=== PATIENT | female | born 1935 | race Caucasian/White ===

== ENCOUNTER 2020-08-23 07:05 | Outpatient (CLI) | payer MEDICARE, SELFPAY ==
[2020-08-23 22:56] LABS: SARS-CoV-2 RNA PCR Negative
== END 2020-08-23 07:06 | disposition home or self-care (01) ==
LOC: CHSLAB 07:09
PROVIDERS: PCP Internal Medicine; Visit Provider Internal Medicine Gastroenterology
DX: Z01.812 Encounter for preprocedural laboratory examination (principal); Z20.828 Contact with and (suspected) exposure to other viral communicable diseases
CPT/HCPCS: 87635; C9803; U0003

== ENCOUNTER 2020-08-25 02:07 | Day surgery (SDC) | payer MEDICARE, SELFPAY ==
[2020-08-17 15:48] VITALS: BMI 25.4
[2020-08-25] MEDS: LACTATED RINGERS 1,000 ML 150 ML IV CONT (09:54)
[2020-08-25 09:58] VITALS: BP 181/71; PULSE 112; RESP 18; TEMP 36.8; O2SAT 97; BMI 24.6
--- NOTE | 2020-08-25 10:05 | WPDHPUPDATE1 ---
History and Physical Update Update Date/Time: 08/25/20 10:05 History and Physical has been reviewed, including an updated exam of the patient. There are NO changes in the patient's condition. Risks, benefits, and alternatives have been discussed and questions answered. Patient agrees to proceed with procedure.
--- NOTE | 2020-08-25 10:10 | WPDANESEPPF ---
Anes - Initial Pre Proc Eval Procedure: Operation Date: 08/25/20 10:30 Proposed Procedures p Colonoscopy - Calvin Williamson MD Date/Time: 08/25/20 10:10 Surgeon: Calvin Williamson MD Pre Op Diagnosis: Diarrhea Patient Data Age: 85 Gender: F Height: 5 ft 3 in Weight: 63.1 kg Last Vital Signs Temp 98.2 F 08/25/20 09:58 Pulse 112 H 08/25/20 09:58 Resp 18 08/25/20 09:58 BP 181/71 H 08/25/20 09:58 Pulse Ox 97 08/25/20 09:58 Allergies Allergy/AdvReac Type Severity Reaction Status Date / Time adhesive tape Allergy Unknown SKIN Verified 08/25/20 09:57 IRRITATION doxycycline Allergy Unknown Unknown Verified 08/25/20 09:57 Iodine and Iodide Containing Allergy Unknown Unknown Verified 08/25/20 09:57 Produc lansoprazole Allergy Unknown Unknown Verified 08/25/20 09:57 sulfamethizole Allergy Unknown Unknown Verified 08/25/20 09:57 trimethoprim Allergy Unknown Unknown Verified 08/25/20 09:57 Contrast Media Allergy Severe RASH Uncoded 08/25/20 09:57 Home Medications Medication Instructions Recorded Confirmed Type hydrochlorothiazide 12.5 mg tablet 12.5 mg PO DAILY 04/27/20 08/17/20 History levothyroxine 112 mcg capsule 112 mcg PO DAILY 04/27/20 08/25/20 History sodium,potassium,mag sulfates 17.5 480 ml PO .COMPLEX #354 ml 08/06/20 08/17/20 Rx gram-3.13 gram-1.6 gram oral soln duloxetine 20 mg PO DAILY 08/17/20 08/25/20 History irbesartan 300 mg PO DAILY 08/17/20 08/17/20 History Patient hx anesthesia problems: none Family hx anesthesia problems: none PMFSH Past Medical History Medical History (Updated 08/06/20 @ 10:17 by Calvin Williamson MD) Anxiety Dyslipidemia Hypertension Hypothyroid Family History Family History Father Family history of coronary artery disease Social History Social History Smoking status: Never smoker Living arrangements: alone Gender identity (if verbalized by the patient): Female Spiritual care concerns: No Anes - Eval Final PreProcedure Day of Procedure 08/25/20 10:10 Patient weight: normal Heart: regular rate and rhythm Lungs: clear to auscultation Airway: Mallampati scale class II Neurological: alert and oriented Last oral intake: >/= 8 hours ASA classification: III Emergent: no Anesthetic plan: proceed Anesthesia type and monitoring: general GIVS and standard monitoring Informed Consent: The patient's anesthetic plan and its attendant risks and benefits were discussed with the patient/family/POA. Questions were solicited and answers provided to the satisfaction of the patient/family/POA.
[2020-08-25 10:29] VITALS: BP 118/58; PULSE 80; RESP 24; O2SAT 98
[2020-08-25 10:39] VITALS: BP 155/64; PULSE 69; RESP 22; O2SAT 100
[2020-08-25 10:49] VITALS: BP 155/64; PULSE 68; RESP 22; O2SAT 99
== END 2020-08-25 11:08 | disposition home or self-care (01) ==
PROVIDERS: PCP Internal Medicine; Visit Provider Internal Medicine Gastroenterology
PROC: 0DJD8ZZ Inspection of Lower Intestinal Tract, Via Natural or Artificial Opening Endoscopic (ICD-10-PCS; CPT 45378; principal; 2020-08-25 10:30)
DX: R19.7 Diarrhea, unspecified (principal); K63.89 Other specified diseases of intestine; K64.8 Other hemorrhoids; I10 Essential (primary) hypertension; E78.5 Hyperlipidemia, unspecified; E03.9 Hypothyroidism, unspecified; F41.9 Anxiety disorder, unspecified
CPT/HCPCS: 45380; 88305; 88342; J2704; J7120

== ENCOUNTER 2021-03-05 08:16 | Outpatient (CLI) | payer MEDICARE, SELFPAY | END 2021-03-05 08:17 | disposition home or self-care (01) | LOC: CHSCOVIDVC 08:17 | PROVIDERS: PCP Internal Medicine | DX: Z23 Encounter for immunization (principal) | CPT/HCPCS: 0011A; 91301 ==

== ENCOUNTER 2021-04-02 08:20 | Outpatient (CLI) | payer MEDICARE, SELFPAY | END 2021-04-02 08:21 | disposition home or self-care (01) | LOC: CHSCOVIDVC 08:20 | PROVIDERS: PCP Internal Medicine | DX: Z23 Encounter for immunization (principal) | CPT/HCPCS: 0012A; 91301 ==

== ENCOUNTER 2022-06-26 09:35 | Emergency (ER) | payer MEDICARE, SELFPAY ==
--- NOTE | ~2022-06-26 | CT_ITS ---
EXAMINATION: CT brain wo con DATE: 06/26/2022 10:20 INDICATION: Speech deficit. Headache. TECHNIQUE: Computed tomography (CT) of the head was performed without intravenous contrast. The mA wa s adjusted according to patient size. Iterative reconstruction technique was employed. The dose-lengt h product was 605.33 mGy-cm. COMPARISON: Head CT 12/19/2017 FINDINGS: There are scattered areas of low attenuation in the cerebral white matter. There is no intr acranial hemorrhage, acute infarction, or abnormal intracranial mass lesion. The ventricles are mynor l in size. The paranasal sinuses are clear. The orbits are normal. There is a small left mastoid effu jolly. IMPRESSION: 1. Mild nonspecific cerebral white matter disease, which likely represents chronic small vessel ische willie disease. Reviewed, dictated and finalized at location A. IMPRESSION: 1. Mild nonspecific cerebral white matter disease, which likely represents media monitor edilberto small vessel ischemic disease.
[2022-06-26 09:35] VITALS: BP 172/75; PULSE 97; RESP 16; TEMP 36.5; O2SAT 100
[2022-06-26 09:40] VITALS: BP 172/75; PULSE 91; RESP 18; TEMP 36.5; O2SAT 98
--- NOTE | 2022-06-26 09:53 | ED.NEUROSD ---
HPI - Neuro Symptoms/Deficit General Chief Complaint: Altered Mental Status Stated Complaint: hard time communicating with pharmacy slight heada Time Seen by Provider: 06/26/22 09:53 Source: patient, family and RN notes reviewed Mode of arrival: ambulatory Limitations: no limitations History of Present Illness HPI Narrative: patient had an episode where she was on the phone with the pharmacy and suddenly could not find the words to speak she had hang up the phone. Then she was able to call her daughter and after about 5-10 minutes the symptoms completely resolved. She denies any one-sided body weakness. She complained of a slight headache which has also resolved. Onset (ago): minute(s) (20) Timing confirmed by: family member Location: speech History of same: No Severity: moderate Quality: intermittent Relieving factors: time Exacerbating factors: none Context: sudden onset On Anticoagulants: No Associated symptoms: denies other symptoms Treatments Prior to Arrival: none Related Data Home Medications Medication Instructions Recorded Confirmed hydrochlorothiazide 12.5 mg tablet 12.5 mg PO DAILY 04/27/20 06/26/22 levothyroxine 112 mcg capsule 112 mcg PO DAILY 04/27/20 06/26/22 duloxetine 20 mg capsule,delayed 20 mg PO DAILY 08/17/20 06/26/22 release irbesartan 300 mg tablet 300 mg PO DAILY 08/17/20 06/26/22 fyhtnphdwxob-ajmmbykn-wnfimb tablet 1 tablet PO DAILY 08/10/21 06/26/22 Allergies Allergy/AdvReac Type Severity Reaction Status Date / Time adhesive tape Allergy Unknown SKIN Verified 06/26/22 09:49 IRRITATION doxycycline Allergy Unknown Unknown Verified 06/26/22 09:49 Iodine and Iodide Containing Allergy Unknown Unknown Verified 06/26/22 09:49 Produc lansoprazole Allergy Unknown Unknown Verified 06/26/22 09:49 sulfamethizole Allergy Unknown Unknown Verified 06/26/22 09:49 trimethoprim Allergy Unknown Unknown Verified 06/26/22 09:49 Contrast Media Allergy Severe RASH Uncoded 04/25/22 13:29 Review of Systems Review of Systems: All systems reviewed & are unremarkable except as noted in HPI and below PMFSH Past Medical History Medical History Anxiety Basal cell carcinoma Chronic diarrhea Colitis determined by colorectal biopsy Diarrhea of infectious origin Dyslipidemia H/O vaginal delivery x 2 Hypertension Hypothyroid Surgical History Surgical History H/O total hysterectomy History of appendectomy History of tonsillectomy and adenoidectomy History of total right knee replacement Family History Family History Father Family history of coronary artery disease Social History Social History Smoking status: Never smoker Alcohol intake: never Substance use: never Gender identity (if verbalized by the patient): Female Spiritual care concerns: No Exam Const: General: healthy appearing, no acute distress and alert Nutritional Appearance: well nourished Orientation/consciousness: patient oriented x3 Limitations: no limitations HENMT: Head: normal to inspection Ears: external ears normal General nose exam: Normal external nose present Face and sinus: normal facial exam Mouth: Yes moist mucous membranes Eyes: Conjunctivae: conjunctivae normal Pupils: Equal, round and reactive pupils present EOM: EOMs intact bilaterally Neck: Neck: normal visual inspection Resp: Effort & Inspection: normal respiratory effort Auscultation: clear to auscultation bilaterally Cardio: Rate: regular rate Rhythm: regular rhythm Heart sounds: Murmur heart sound present systolic mid, harsh, III/ and at the base GI: GI Palp: Yes Soft to palpation and No Tenderness to palpation present (GI) Auscultation: normal bowel sounds Back/Spine/Pelvis: Cervical Spine: cervical ROM normal Thoracic
--- NOTE | 2022-06-26 09:58 | ECG_ITS ---
Measurements Intervals [place] Rate: 75 P: 51 W[place]: 155 QRS: 53 QRSD: 98 T: 45 QT: 366 QTc: 409 Interpretive Statements SINUS RHYTHM Electronically Signed On 06-27-2022 8:28:34 CDT by Jayme Pop M.D.
[2022-06-26 10:18] LABS: Basophils Absolute Auto 0.11 K/mm3 (0.00-0.10); Basophils Percent Auto 1.4 % (0.0-1.0); Eosinophils Absolute Auto 0.32 K/mm3 (0.02-0.50); Eosinophils Percent Auto 4.1 % (1.0-6.0); Hematocrit 36.6 % (35.0-42.0); Hemoglobin 12.3 g/dL (11.7-13.8); Immature Granulocyte Absolute 0.02 K/mm3 (0.00-0.00); Immature Granulocyte Percent A 0.3 % (0.0-0.0); Lymphocytes Absolute Auto 1.63 K/mm3 (1.10-4.50); Lymphocytes Percent Auto 20.7 % (18.0-42.0); Mean Corpuscular HGB Conc 33.6 g/dL (32.0-36.0); Mean Corpuscular Hemoglobin 31.5 pg (27.0-31.0); Mean Corpuscular Volume 93.8 fL (78.0-102.0); Mean Platelet Volume 8.7 fl (9.2-11.8); Monocytes Absolute Auto 0.66 K/mm3 (0.10-0.90); Monocytes Percent Auto 8.4 % (2.0-11.0); Neutrophils Absolute Auto 5.1 K/mm3 (1.7-7.2); Neutrophils Percent Auto 65.1 % (50.0-70.0); Platelet Count Result 382 K/mm3 (150-420); Red Cell Distribution Width 12.4 % (11.6-14.4); White Blood Count 7.9 K/mm3 (4.8-10.8)
[2022-06-26 10:20] VITALS: PULSE 70
[2022-06-26 10:25] VITALS: BP 136/62; PULSE 72; RESP 16; O2SAT 99
[2022-06-26] MEDS: ASPIRIN 81 MG CHEWABLE TABLET 324 MG PO (10:25)
[2022-06-26 10:37] LABS: Prothrombin Time 10.6 Seconds (9.50-12.10)
[2022-06-26 10:44] LABS: Albumin Level 3.4 g/dL (3.4-5.0); Alkaline Phosphatase 113 U/L (46-116); Anion Gap 8 mmol/L (8-16); Aspartate Amino Transferase 18 U/L (15-37); Bilirubin,Total 0.4 mg/dL (0.00-1.00); Blood Urea Nitrogen 23 mg/dL (7-18); Calcium 8.7 mg/dL (8.5-10.1); Carbon Dioxide 26 mmol/L (21-32); Chloride 101 mmol/L (98-108); Estimated CRCL calculation 26 ml/min; Estimated Glomerular Filt Rate 43; Glucose 129 mg/dL (70-99); Osmolality Calculated 285 mOsm/kg (285-295); Potassium 3.9 mmol/L (3.5-5.1); Sodium 135 mmol/L (136-145); Total Protein 7.2 g/dL (6.4-8.2); Troponin I 10.9 ng/L (0.00-60.4)
[2022-06-26 10:55] LABS: Alanine Aminotransferase 11 U/L (14-59)
[2022-06-26 11:20] VITALS: BP 124/58; PULSE 66; RESP 14; TEMP 36.4; O2SAT 96
--- NOTE | 2022-06-26 11:42 | PC.NURSE ---
DR NGUYEN RETURNS CALL AND SPEAKS WITH DR MICHELLE AT THIS TIME.
[2022-06-26 11:58] VITALS: BP 132/68; PULSE 62; RESP 16; O2SAT 97
== END 2022-06-26 12:06 | disposition home or self-care (01) ==
PROVIDERS: Emergency Provider Emergency Medicine; PCP Internal Medicine
DX: Z86.73 Personal history of transient ischemic attack (TIA), and cerebral infarction without residual deficits (principal); E78.5 Hyperlipidemia, unspecified; I10 Essential (primary) hypertension; E03.9 Hypothyroidism, unspecified
CPT/HCPCS: 36415; 70450; 80053; 84484; 85025; 85610; 93005; 99284; A9270

== ENCOUNTER 2022-06-30 07:21 | Outpatient (CLI) | payer MEDICARE, SELFPAY ==
--- NOTE | ~2022-06-30 | CT_ITS ---
EXAMINATION: CT brain wo con DATE: 06/30/2022 08:07 INDICATION: Altered mental status. Speech deficit. Hypertension. TECHNIQUE: Computed tomography (CT) of the head was performed without intravenous contrast. The dose- length product was 605.33 mGy-cm. Automated exposure control and iterative reconstruction technique w ere employed. COMPARISON: CT dated 06/26/2022 FINDINGS: Mild generalized atrophy. There are scattered moderate periventricular and subcortical whit e matter changes, most likely related to small vessel ischemic disease (microangiopathy). No ventricu lomegaly or midline shift. Basilar cisterns are patent. No acute intracranial hemorrhage, infarction or mass. There is intracranial atherosclerosis. Paranasal sinuses and mastoids are pneumatized. No de pressed skull fractures. IMPRESSION: 1. No acute intracranial abnormality. 2: Chronic age-related findings. Reviewed, dictated and finalized at location A.
--- NOTE | ~2022-06-30 | US_ITS ---
EXAMINATION: US carotid duplex BI DATE: 06/30/2022 08:13 INDICATION: TIA. Recent episode of the fascia. Garbled speech. TECHNIQUE: Grayscale, color Doppler, and pulsed Doppler images of the cervical carotid arteries were obtained. The degree of vessel stenosis is placed in one of the following categories: normal, <50%, 5 0-69%, >=70% but less than near-occlusion, near-occlusion, or total occlusion. Note that percent sten osis relative to normal distal artery lumen diameter is indirectly measured from velocity measurement s as described by Noam, et al. Radiology 2003; 229:340-346. Notes: Normal: Peak systolic velocity <125 centimeters/sec and no plaque <50%. Peak systolic velocity <125 ( EDV <40; ICA/CCA PSV ratio <2.0; used these factors only a tandem lesions or low cardiac output or co ntralateral disease) 50-69 %: PSV 125-230 (EDV 40-100; ratio 2-4) >= 70% but less than near occlusion: PSV greater than 230 (EDV > 100; ratio> 4.0) Near Occlusion: PSV that is variable; markedly narrowed lumen Occlusion: Absent flow on color/spectral Doppler and no lumen on herbert scale. COMPARISON: None. FINDINGS: RIGHT: The right common carotid artery (CCA) peak systolic velocity (PSV) is 64 cm/s. The right internal car otid artery (ICA) PSV is 65 cm/s. The right ICA end-diastolic velocity (EDV) is 12 cm/s. The right IC A/CCA PSV ratio is 1.0. The external carotid artery (ECA) PSV is 49 cm/s. There is antegrade flow in the right vertebral artery. LEFT: The left CCA PSV is 65 cm/s. The left ICA PSV is 76 cm/s. The left ICA EDV is 19 cm/s. The left ICA/C CA PSV ratio is 1.2. The ECA PSV is 68 cm/s. There is antegrade flow in the left vertebral artery. IMPRESSION: 1. Less than 50% stenosis in the right internal carotid artery by sonographic criteria. 2. Less than 50% stenosis in the left internal carotid artery by sonographic criteria. Reviewed, dictated and finalized at location A. IMPRESSION: 1. Less than 50% stenosis in the right internal carotid artery by sonographic c halie. 2. Less than 50% stenosis in the left internal carotid artery by sonographic nilesh [facility] [place] [facility].
== END 2022-06-30 07:22 | disposition home or self-care (01) ==
LOC: CHSIMG 07:22
PROVIDERS: PCP Internal Medicine; Visit Provider Internal Medicine
DX: I65.29 Occlusion and stenosis of unspecified carotid artery (principal); R41.82 Altered mental status, unspecified; I10 Essential (primary) hypertension; R47.89 Other speech disturbances
CPT/HCPCS: 70450; 93880

== ENCOUNTER 2022-07-03 12:14 | Outpatient (CLI) | payer MEDICARE, SELFPAY ==
--- NOTE | 2022-07-03 13:30 | ECHO_ITS ---
Patient Info Name: Olivia Polo Age: 86 years : 1935 Gender: Female Ht: 63 in Wt: 145 lbs BSA: 1.72 m2 HR: 74 bpm BP: 157 / 61 mmHg Technical Quality: Good Exam Date: 07/03/2022 12:34 PM Exam Location: [facility] [place] Patient Status: Outpatient Admit Date: 07/03/2022 Staff Ordering Physician: Srikanth Orozco MD Aerospace Physiological Technician: Juan M Smith RDCS, RT Attending Provider: Srikanth Orozco MD Exam Type: CA echo doppler color flow Study Info Indications I10 - Essential (primary) hypertension Complete two-dimensional, color flow and Doppler transthoracic echocardiogram is performed. Strain analysis performed. Summary 1. Complete two-dimensional, color flow and Doppler transthoracic echocardiogram is performed. 2. Left ventricular chamber dimension is normal. 3. Left ventricular systolic function is hyperdynamic, estimated at >70%. 4. There is mildly increased left ventricular wall thickness. 5. The left ventricular diastolic function is grade I diastolic dysfunction. 6. E/e' 7 is not elevated. 7. Global longitudinal strain is abnormal at -15.7%. 8. No pulmonary hypertension, estimated pulmonary arterial systolic pressure is 30 mmHg. Left Ventricle E/e' 7 is not elevated. Global longitudinal strain is abnormal at -15.7%. Left ventricular chamber dimension is normal. Left ventricular systolic function is hyperdynamic, estimated at >70%. There is mildly increased left ventricular wall thickness. The left ventricular diastolic function is grade I diastolic dysfunction. Right Ventricle Right ventricular systolic function is normal and with normal TAPSE 2.3 cm. Right ventricular chamber dimension is normal. Left Atria Left atrial chamber dimension is normal. Right Atria Right atrial chamber dimension is normal. Aortic Valve The aortic valve is trileaflet. There is no aortic valve stenosis. There is no aortic valve regurgitation. Pulmonic Valve There is no pulmonic regurgitation. Mitral Valve There is no mitral valve stenosis. There is no mitral valve regurgitation. Tricuspid Valve There is no tricuspid valve regurgitation. No pulmonary hypertension, estimated pulmonary arterial systolic pressure is 30 mmHg. Pericardium/Pleural There is no pericardial effusion. Inferior Vena Cava Normal inferior vena cava with >50% collapse upon inspiration consistent with normal right atrial pressure, 5 mmHg. Aorta The aortic root size at the sinus of Valsalva is normal. Left Ventricular Outflow Tract Name Value Normal LVOT 2D LVOT Diameter 1.9 cm LVOT Doppler LVOT Peak Velocity 86 cm/s LVOT Peak Gradient 3 mmHg LVOT Mean Gradient 1 mmHg LVOT VTI 17 cm LVOT VTI/AV VTI Ratio 0.8 LVOT Stroke Volume 46 ml Mitral Valve Name Value Normal MV Dop
== END 2022-07-03 12:15 | disposition home or self-care (01) ==
LOC: CHSIMG 12:15
PROVIDERS: PCP Internal Medicine; Visit Provider Internal Medicine
DX: R41.82 Altered mental status, unspecified (principal); R47.9 Unspecified speech disturbances; I10 Essential (primary) hypertension
CPT/HCPCS: 93306

== ENCOUNTER 2022-10-03 12:38 | Outpatient (CLI) | payer MEDICARE, SELFPAY | END 2022-10-03 12:39 | disposition home or self-care (01) | PROVIDERS: PCP Internal Medicine; Visit Provider Specialist | DX: C44.622 Squamous cell carcinoma of skin of right upper limb, including shoulder (principal) | CPT/HCPCS: 88305 ==

== ENCOUNTER 2023-01-12 11:31 | Outpatient (CLI) | payer MEDICARE, SELFPAY ==
--- NOTE | ~2023-01-12 | XR_ITS ---
Clinical Indication: Chest pain PA and lateral views of the chest: Comparison: 07/21/2019 Findings: Calcified right midlung granuloma is unchanged. The lungs are otherwise clear, without evid ence of focal consolidation or pleural effusion. Cardiomediastinal silhouette is within normal limit s. Bones and soft tissues are unremarkable. Impression: No acute reality. Reviewed, dictated and finalized at location . E CLEANER Impression: No acute reality.
== END 2023-01-12 11:32 | disposition home or self-care (01) ==
LOC: CHSIMG 11:33
PROVIDERS: PCP Internal Medicine; Visit Provider Internal Medicine
DX: R07.9 Chest pain, unspecified (principal); R06.00 Dyspnea, unspecified; G93.32 Myalgic encephalomyelitis/chronic fatigue syndrome
CPT/HCPCS: 71046

== ENCOUNTER 2023-01-15 15:34 | Outpatient (CLI) | payer MEDICARE, SELFPAY ==
[2023-01-15 16:07] LABS: Estimated Glomerular Filt Rate 42
== END 2023-01-15 15:35 | disposition home or self-care (01) ==
LOC: CHSLAB 15:36
PROVIDERS: PCP Internal Medicine; Visit Provider Internal Medicine
DX: R06.00 Dyspnea, unspecified (principal)
CPT/HCPCS: 99199

== ENCOUNTER 2023-01-16 09:38 | Outpatient (CLI) | payer MEDICARE, SELFPAY ==
--- NOTE | ~2023-01-16 | NM_ITS ---
Nuclear Medicine Procedure: Perfusion/Ventilation Lung Scan History: Pulmonary embolus. Interpretation: Ventilation portion of the exam was not performed due to Covid 19 precautions. 5.2 mCi. of Technetium-labeled microspheres were injected intravenously and multiple images obtained in 8 projections revealed normal perfusion to the lungs without any segmental or subsegmental defects . Impression: Normal perfusion lung scan. This excludes clinically significant pulmonary emboli. ............................................................... The following are reference parameters for VQ scan interpretation: 1. Normal or Near-Normal Lung Scan: This excludes clinically significant pulmonary embolism. Angiography is not necessary. 2. High Probability for Pulmonary Embolism: There is over 90% probability for acute pulmonary embolism. Angiography is not necessary for confirmation. 3. A. Intermediate (low end): Whereas unlikely to be PE based on V/Q scan alone, there is a 10-25% probability for pulmonary embolism (PE) based upon the level of clinical suspicion. B. Intermediate (high end): Depending upon the level of clinical suspicion, there is a 30-60% probability for pulmonary embolism. Reviewed, dictated and finalized at location . Impression: Normal perfusion lung scan. This excludes clinically significant pu lmonary emboli. ............................................................... The following are reference parameters for VQ scan interpretation: 1. Normal or Near-Normal Lung Scan: This excludes clinically significant pulmonary embolism. Angiography is not necessary. 2. High Probability for Pulmonary Embolism: There is over 90% probability for acute pulmonary embolism. Angiography is not necessary for confirmation. 3. A. Intermediate (low end): Whereas unlikely to be PE based on V/Q scan alone, there is a 10-25% probability for pulmonary embolism (PE) based upon the level of clinical suspicion. B. Intermediate (high end): Depending upon the level of clinical suspicion, there is a 30-60% probability for pulmonary embolism.
--- NOTE | ~2023-01-16 | XR_ITS ---
Clinical Indication: Dyspnea PA view of the chest: Comparison: 01/12/2023 Findings: Stable calcified right lower lobe granuloma. The lungs are otherwise clear, without evidenc e of focal consolidation or pleural effusion. Cardiomediastinal silhouette is within normal limits. Bones and soft tissues are unremarkable. Impression: No acute abnormality. Reviewed, dictated and finalized at location . Impression: No acute abnormality.
== END 2023-01-16 09:39 | disposition home or self-care (01) ==
PROVIDERS: PCP Internal Medicine; Visit Provider Internal Medicine
DX: R06.00 Dyspnea, unspecified (principal)
CPT/HCPCS: 71045; 78580; A9540

== ENCOUNTER 2023-01-19 14:12 | Emergency (ER) | payer MEDICARE, SELFPAY ==
[2023-01-19] VITALS (25 sets, daily range): BP systolic 109–137; BP diastolic 43–71; PULSE 61–73; RESP 20; TEMP 36.9–37.1; O2SAT 90–100
--- NOTE | ~2023-01-19 | XR_ITS ---
XR chest 1V portable 01/19/2023 16:14 Indication: Covid infection. Cough and fever. Procedure: AP portable chest Comparison: 01/16/2023 Findings: There is subtle right basilar airspace disease. Heart size normal. No pleural effusion no a cute osseous abnormality. Impression: 1: Subtle right basilar airspace disease may represent atelectasis or pneumonia. Reviewed, dictated and finalized at location A. Impression: 1: Subtle right basilar airspace disease may represent atelectasis or pneumonia .
--- NOTE | 2023-01-19 15:44 | ECG_ITS ---
Measurements Intervals [place] Rate: 60 P: 78 IA: 166 QRS: 82 QRSD: 94 T: 79 QT: 426 QTc: 429 Interpretive Statements SINUS RHYTHM ATRIAL PREMATURE COMPLEXES BORDERLINE T WAVE ABNORMALITY- HIGH LATERAL LEADS BASELINE ARTIFACT- I, II, III, AVL, V5-V6 BORDERLINE ECG COMPARED TO ECG 06/26/2022 10:29:17 NO SIGNIFICANT CHANGES Electronically Signed On 01-19-2023 16:53:55 CDT by David Nam D.O.
--- NOTE | 2023-01-19 15:45 | ED.GENADULT ---
HPI - General Adult General Chief complaint: Upper Respiratory Infection Stated complaint: covid + / dehydration History of Present Illness HPI narrative: The patient is an 87-year-old woman with history of hypertension, anxiety, migraine headaches, hypothyroidism and hyperlipidemia. She has not contracted COVID-19 previously. She is vaccinated against COVID-19 2 of 2 doses +1 booster. She went to her primary care provider office today due to cough with productive of white phlegm, with fatigue and shortness of breath. She has felt weak and has been in bed for the last 3 days. She does not feel well. At the PCP office, she had a diarrheal episode while waiting in the chair. Saturations were 94% at the doctor's office with a pulse of 112 and a blood pressure 123/67. Testing for COVID-19 was positive, influenza was negative. She was referred here for possible confusion, possible dehydration. The patient feels better now. She denies any dyspnea. Denies any chest pain or abdominal pain. No nausea vomiting. She does feel weak. Does have an occasional cough productive of sputum. No fevers or chills. Related Data Home Medications Medication Instructions Recorded Confirmed hydrochlorothiazide 12.5 mg tablet 12.5 mg PO DAILY 04/27/20 01/19/23 levothyroxine 112 mcg capsule 112 mcg PO DAILY 04/27/20 01/19/23 duloxetine 20 mg capsule,delayed 20 mg PO DAILY 08/17/20 01/19/23 release irbesartan 300 mg tablet 300 mg PO DAILY 08/17/20 01/19/23 dwdrfuytfdpv-kwrlfzkz-ftwmgq tablet 1 tablet PO DAILY 08/10/21 01/19/23 Allergies Allergy/AdvReac Type Severity Reaction Status Date / Time adhesive tape Allergy Unknown SKIN Verified 06/26/22 09:49 IRRITATION doxycycline Allergy Unknown Unknown Verified 06/26/22 09:49 Iodine and Iodide Containing Allergy Unknown Unknown Verified 06/26/22 09:49 Produc lansoprazole Allergy Unknown Unknown Verified 06/26/22 09:49 sulfamethizole Allergy Unknown Unknown Verified 06/26/22 09:49 trimethoprim Allergy Unknown Unknown Verified 06/26/22 09:49 Contrast Media Allergy Severe RASH Uncoded 04/25/22 13:29 Review of Systems Review of Systems: All systems reviewed & are unremarkable except as noted in HPI and below Constitutional: Constitutional: Reports as per HPI, Reports no additional constitutional complaints, Denies chills, Denies excessive sweating, Reports fatigue, Denies fever(s), Denies headache(s) and Reports weakness Eyes: Eyes: Reports as per HPI, Reports no additional eye complaints, Denies change in vision and Denies photophobia ENT: Reports system reviewed and no additional complaints, except as documented, Reports as per HPI, Denies dysphagia, Denies vertigo, Denies dizziness, Denies headache(s), Denies lip swelling, Denies nasal congestion, Denies sore throat, Denies throat swelling and Denies tongue swelling Cardiovascular: Cardiovascular: Reports as per HPI, Reports no additional cardiovascular complaints, Denies chest pain, Denies syncope, Denies rapid heart rate and Denies dyspnea Respiratory: Respiratory: Reports as per HPI, Reports no additional respiratory complaints, Denies chest congestion, Reports cough, Denies dyspnea and Denies wheezing Gastrointestinal: Gastrointestinal: Reports as per HPI, Reports no additional gastrointestinal complaints, Denies abdominal pain, Denies constipation, Denies dysphagia, Reports diarrhea, Denies nausea and Denies vomiting Genitourinary: Genitourinary: Reports as per HPI, Denies hematuria, Denies urinary frequency, Denies dysuria, Denies urinary incontinence and Denies urinary urgency Musculoskeletal: Musculoskeletal: Reports no additional musculoskeletal complaints, Denies back pain, Reports myalgias, Denies arthralgias, Denies joint swelling and Denies numbness Integumentary/Breasts: Skin/Breast: Reports system reviewed and no additional complaints, except as docu, Denies pruritus, Denies erythema, Denies rash and Denies skin ulcer Neurolog
[2023-01-19] MEDS: SODIUM CHLORIDE 0.9% IV 1,000 ML 999 ML IV CONT (15:57)
[2023-01-19] MEDS: DEXAMETHASONE 2 MG TABLET 6 MG PO (15:58)
[2023-01-19 15:59] LABS: Basophils Absolute Auto 0.03 K/mm3 (0.00-0.10); Basophils Percent Auto 0.4 % (0.0-1.0); Hematocrit 34.2 % (35.0-42.0); Hemoglobin 11.8 g/dL (11.7-13.8); Immature Granulocyte Absolute 0.03 K/mm3 (0.00-0.00); Immature Granulocyte Percent A 0.4 % (0.0-0.0); Lymphocytes Absolute Auto 0.75 K/mm3 (1.10-4.50); Lymphocytes Percent Auto 9.1 % (18.0-42.0); Mean Corpuscular HGB Conc 34.5 g/dL (32.0-36.0); Mean Corpuscular Hemoglobin 31.6 pg (27.0-31.0); Mean Corpuscular Volume 91.7 fL (78.0-102.0); Monocytes Absolute Auto 0.89 K/mm3 (0.10-0.90); Monocytes Percent Auto 10.8 % (2.0-11.0); Neutrophils Absolute Auto 6.6 K/mm3 (1.7-7.2); Neutrophils Percent Auto 79.3 % (50.0-70.0); Platelet Count Result 309 K/mm3 (150-420); Red Blood Count 3.73 M/mm3 (4.20-5.40); Red Cell Distribution Width 12.4 % (11.6-14.4); White Blood Count 8.3 K/mm3 (4.8-10.8)
[2023-01-19 16:23] LABS: Alanine Aminotransferase 20 U/L (14-59); Albumin Level 3.4 g/dL (3.4-5.0); Alkaline Phosphatase 106 U/L (46-116); Anion Gap 10 mmol/L (8-16); Aspartate Amino Transferase 27 U/L (15-37); Bilirubin,Total 0.3 mg/dL (0.00-1.00); Blood Urea Nitrogen 27 mg/dL (7-18); Calcium 8.4 mg/dL (8.5-10.1); Carbon Dioxide 24 mmol/L (21-32); Chloride 97 mmol/L (98-108); Estimated CRCL calculation 21 ml/min; Estimated Glomerular Filt Rate 37; Glucose 124 mg/dL (70-99); NT Pro B Type Natriuretic Pept 228 pg/mL (0-450); Osmolality Calculated 278 mOsm/kg (285-295); Potassium 3.6 mmol/L (3.5-5.1); Sodium 131 mmol/L (136-145); Total Protein 6.7 g/dL (6.4-8.2); Troponin I 11.3 ng/L (0.00-60.4)
== END 2023-01-19 18:00 | disposition home or self-care (01) ==
PROVIDERS: Emergency Provider Emergency Medicine; PCP Internal Medicine
DX: U07.1 COVID-19 (principal); J20.8 Acute bronchitis due to other specified organisms; E86.0 Dehydration; R06.02 Shortness of breath; I10 Essential (primary) hypertension; E03.9 Hypothyroidism, unspecified; E78.5 Hyperlipidemia, unspecified; Z85.828 Personal history of other malignant neoplasm of skin
CPT/HCPCS: 36415; 71045; 80053; 83880; 84484; 85025; 93005; 96360; 99283; J1100; J7030; J8540

== ENCOUNTER 2023-05-17 12:54 | Outpatient (CLI) | payer MEDICARE, SELFPAY ==
--- NOTE | ~2023-05-17 | XR_ITS ---
EXAMINATION: XR chest 2V DATE: 05/17/2023 13:17 INDICATION: Shortness of breath TECHNIQUE: PA and lateral views of the chest are obtained. COMPARISON: 04/12/2023 FINDINGS: The lungs are free of acute opacities. No pleural effusion or pneumothorax. The cardiomedia stinal silhouette is normal. There is moderate thoracic spondylosis. A calcified nodule of the right middle lobe is consistent with old granulomatous disease. IMPRESSION: 1. No acute cardiopulmonary abnormality. Reviewed, dictated and finalized at location L.
--- NOTE | 2023-05-23 17:19 | WPDPFTINT ---
PFT Interpretation DOS: 05/17/2023 REQUESTING: Srikanth Orozco MD REASON FOR TESTING: shortness of breath PULMONARY FUNCTION TESTS Results are reliable and reproducible. Spirometry: FEV1 is 1.66 L, 99%, normal. FVC is 2.25 L, 104% predicted. FEV1/FVC is 774%, normal. After bronchodilator, there is a 2% increase in FEV1 and 6% decrease in the FVC. These are not significant changes. The XEG15-28% is 1.17 L, 108% predicted. Lung volumes: TLC is 4.29 L, 100% predicted. RV is 2.04 L, 107%, normal. RV/TLC is 48%, normal. Diffusion: DLCO is 12, 75% predicted, normal. DLCO/VA is 3.42, 108% predicted. Flow volume loop: Normal. IMPRESSION: Normal spirometry, normal lung volumes, normal diffusion. No response to bronchodilator. Lack of response to bronchodilator should not preclude use if clinically indicated. No prior testing for comparison. Patrica Schaefer MD
== END 2023-05-17 12:55 | disposition home or self-care (01) ==
LOC: CHSCARD 12:56
PROVIDERS: PCP Internal Medicine; Visit Provider Nurse Practitioner Family
DX: R06.02 Shortness of breath (principal)
CPT/HCPCS: 71046; 94060; 94726; 94729

== ENCOUNTER 2025-06-10 07:38 | Outpatient (CLI) | payer MEDICARE, SELFPAY ==
[2025-06-10 07:52] LABS: Hematocrit 39.3 % (35.0-42.0); Hemoglobin 12.9 g/dL (11.7-13.8); Mean Corpuscular HGB Conc 32.8 g/dL (32-36); Mean Corpuscular Hemoglobin 30.7 pg (27.0-31.0); Mean Corpuscular Volume 93.6 fL (78.0-102.0); Platelet Count Result 405 K/mm3 (150-420); Red Blood Count 4.20 M/mm3 (4.20-5.40); White Blood Count 8.4 K/mm3 (4.8-10.8)
[2025-06-10 08:27] LABS: Alanine Aminotransferase 14 U/L (6-35); Albumin Level 4.4 g/dL (3.5-5.1); Alkaline Phosphatase 94 U/L (38-126); Anion Gap 6 mmol/L (4-12); Aspartate Amino Transferase 30 U/L (14-36); Bilirubin,Total 0.6 mg/dL (0.2-1.3); Blood Urea Nitrogen 21 mg/dL (7-17); Calcium 9.9 mg/dL (8.4-10.2); Carbon Dioxide 27 mmol/L (22-30); Chloride 104 mmol/L (98-107); Estimated Glomerular Filt Rate 47; Glucose 99 mg/dL (65-110); Osmolality Calculated 287 mOsm/kg (285-295); Potassium 5.1 mmol/L (3.4-5.0); Sodium 137 mmol/L (137-145); Total Protein 6.6 g/dL (6.3-8.2)
[2025-06-10 08:57] LABS: Thyroid Stimulating Hormone 2.150 uIU/mL (0.465-4.680)
== END 2025-06-10 07:39 | disposition home or self-care (01) ==
LOC: CHSLAB 07:41
PROVIDERS: PCP Internal Medicine; Visit Provider Internal Medicine
DX: E03.9 Hypothyroidism, unspecified (principal); I10 Essential (primary) hypertension
CPT/HCPCS: 36415; 80053; 84443; 85027

== ENCOUNTER 2025-09-29 07:45 | Outpatient (NON) | payer MEDICARE, SELFPAY ==
--- NOTE | 2025-09-29 | S_PTH ---
PATIENT: Olivia Polo LOC: [facility] #:[id number] AGE/SX: 89/F ROOM: RE09/29/[address]: Jonah Bower MD : 1935 BED: DIS: 09/29/2025 SPEC #: [id number] RECD: 09/30/25 09:11 STATUS: KENNY GARY #: [id number] MILY: 09/29/25 00:[address]: Jonah Bower DEPT: [facility] Surgical RECD BY: Mame Heredia ENTERED: 09/30/25 09:12 SP TYPE: Surgical OTHR DR: Srikanth Orozco MD Tissues: A - Skin Procedures: Hematoxylin and Eosin Stain Gross and Microscopic Level 4
--- OUTSIDE RECORDS SUMMARY | 2025-09-30 07:48 | XMS_ITS | Clinical Summary ---
Author Organization [facility] Address [facility] [place] [address] Care Team Providers Care Bungy Jump Master Name Role Phone Srikanth Orozco MD Primary Care Provider [phone] Allergies Active Allergy Reactions Criticality Noted Date Comments Clindamycin Throat swelling 09/15/2024 Iodine Rash Low 09/15/2024 Doxycycline Throat swelling 09/15/2024 Medications levothyroxine (SYNTHROID) 112 MCG tablet Take 1 tablet (112 mcg total) by mouth every morning. Active clopidogrel (PLAVIX) 75 MG tablet Take 1 tablet (75 mg total) by mouth daily. Active rosuvastatin (CRESTOR) 5 MG tablet Take 1 tablet (5 mg total) by mouth nightly at bedtime. Active irbesartan (AVAPRO) 300 MG tablet Take 1 tablet (300 mg total) by mouth daily. Active hydroCHLOROthia zide (MICROZIDE) 12.5 MG capsule Take 1 capsule (12.5 mg total) by mouth every morning. Active Social History Tobacco Use Types Packs/Day Years Used Date Smoking Tobacco: Never Smokeless Tobacco: Never Tobacco Cessation:Counseling Given: Not Answered Alcohol Use Standard Drinks/Week Comments Never 0 (1 standard drink = 0.6 oz pur e alcohol) Comments Unknown Sex and Gender Information Value Date Recorded Sex Assigned at Not on file Legal Sex Female 10:25 PM CDT Gender Identity Not on file Sexual Orientation Not on file Last Filed Vital Signs Vital Sign Reading Time Taken Comments Blood Pressure 153/52 12/29/2024 8:15 AM EDI ANALYST Pulse 69 12/29/2024 8:15 AM EDI ANALYST Temperature 36.6 C (97.8 F) 12/29/2024 7:08 AM EDI ANALYST Respiratory Rate 16 12/29/2024 7:08 AM EDI ANALYST Oxygen Saturation 100% 12/29/2024 8:15 AM EDI ANALYST Inhaled Oxygen Concentration - - Weight 59 kg (130 lb) 12/29/2024 7:04 AM EDI ANALYST Height 160 cm (5' 3) 12/29/2024 7:04 AM EDI ANALYST Body Mass Index 23.03 12/29/2024 7:04 AM EDI ANALYST Plan of Treatment Health Maintenance Due Date Last Done Comments Annual Medicare Wellness Visit 2001 RSV Immunization or 60+ Years (1 - 1-dose 75+ series) 2011 COVID-19 Vaccine ( season) 2025 11/15/2021, 04/02/2021, 03/05/2021 Influenza Adult (#1) 2025 07/28/2024, 10/05/2023, 07/12/2022, Additional history exists DTaP, Tdap and Td Vaccines (2 - Td or Tdap) 06/01/2033 06/01/2023 Hepatitis A Vaccines Aged Out 07/06/2000, 12/09/19 00 No longer eligible based on patient's age to complete this topic Pneumococcal Vaccine: 50+ Years Completed 11/29/2021, 08/27/2002 Zoster Vaccines Completed 06/09/2022, 11/29/2021 Meningococcal B Vaccine Aged Out No l onger eligible based on patient's age to complete this topic Meningococcal Vaccine Aged Out No pancho brianne eligible based on patient's age to complete this topic RSV Immunizations Under 20 Months Aged Out No longer eligible based on patient's age to complete this topic Medical Devices Implanted Type Area Aircraft Seat Upholsterer Device Identifier Shelf Expiration Date Model / Serial / Lot Tecnis 1-Piece Iol With Tecnis Simplicity Delivery System Implanted:Qty: 1 on 12/29/2024 by Momo Dupont MD at [facility] Lens Right: Eye [employer] 04/20/2026 / [id number] / Tecnis 1-Piece Iol Implanted:Qty: 1 on 09/29/2024 by Momo Dupont MD at [facility] Left: Eye [employer] [id number] 09/10/2026 [id number] / [id number] / Insurance MEDICARE [facility]IC[facility] Care Teams Bungy Jump Master Relationship Specialty Start Date End Date Srikanth Orozco MD [address] [place] [address] PCP - General INTERNAL MEDICINE 09/26/24
== END 2025-09-29 07:46 | disposition home or self-care (01) ==
LOC: ANHLAB 09-30 07:45
PROVIDERS: PCP Internal Medicine; Visit Provider Plastic Surgery
DX: C44.629 Squamous cell carcinoma of skin of left upper limb, including shoulder (principal)
CPT/HCPCS: 88305